=== PATIENT | female | born 1995 | race Caucasian/White ===

== ENCOUNTER 2022-06-27 23:46 | Emergency (ER) | payer SELFPAY ==
[~2022-06-27] VITALS: Ht 160 cm; Wt 57.2 kg
--- NOTE | 2022-06-28 00:40 | NUR ---
TO ER BED 11. BIBS FOR C/O LOWER ABD PAIN , N/V X 1 DAY. NO HEMATURIA OR DYSURIA. PT IS ALERT AND ORIENTED. RR EVEN AND NONLABOED. AMBULATORY WITH STEADY GAIT. CONNECTED TO MONITOR. AWAITING MD LEBLANC
[2022-06-28] MEDS ORDERED: ONDANSETRON HCL/PF 4 MG/2 ML VIAL ONE (01:12)
[2022-06-28] MEDS ORDERED: ACETAMINOPHEN ES 500 MG TABLET ONE (01:13)
--- NOTE | 2022-06-28 01:27 | NUR ---
BLOOD COLLECTED AND SENT TO LAB
--- NOTE | 2022-06-28 01:27 | NUR ---
IV LINE ESTABLISHED, [id number]
[2022-06-28] MEDS ORDERED: ACETAMINOPHEN ES 500 MG TABLET PO ONE (01:30)
[2022-06-28] MEDS ORDERED: IV NS 0.9% 1,000 ML BAG IV ONE (01:30)
[2022-06-28] MEDS ORDERED: ONDANSETRON HCL/PF 4 MG/2 ML VIAL IVP ONE (01:30)
--- NOTE | 2022-06-28 01:58 | NUR ---
URINE COLLECTED AND SENT TO LAB
[2022-06-28 02:00] LABS: BASOPHILS % (AUTO) 0.1 % (0.0-2.0); HEMATOCRIT 41 % (33-45); HEMOGLOBIN 13.8 g/dL (11.5-14.8); LYMPHOCYTES # (AUTO) 1.2 K/uL (0.8-4.8); LYMPHOCYTES % (AUTO) 7.7 % (20.0-44.0); MEAN CORPUSCULAR HGB CONC 34 g/dl (31.0-36.0); MEAN CORPUSCULAR VOLUME 90 fL (82-100); MONOCYTES # (AUTO) 0.4 K/uL (0.1-1.30); MONOCYTES % (AUTO) 2.5 % (2.0-12.0); NEUTROPHILS % (AUTO) 89.7 % (43.0-81.0); PLATELET COUNT (AUTO) 366 K/uL (150-450); RED BLOOD CELL COUNT(AUTO) 4.52 MIL/uL (4.0-5.2); WHITE BLOOD COUNT (AUTO) 15.6 K/uL (4.3-11.0)
[2022-06-28 02:13] LABS: ALBUMIN 4.7 g/dL (3.4-5.0); BILIRUBIN,DIRECT 0.4 mg/dL (0.0-0.2); BILIRUBIN,TOTAL 2.6 mg/dL (0.2-1.0); CALCIUM, SERUM 9.8 mg/dL (8.5-10.1); CREATININE 0.9 mg/dL (0.6-1.3); POTASSIUM 3.7 mmol/L (3.5-5.1); TOTAL PROTEIN, SERUM 8.4 g/dL (6.4-8.2)
[2022-06-28 02:55] LABS: BILIRUBIN,URINE NEGATIVE (NEGATIVE); COLOR,URINE DARK YELLOW (YELLOW); LEUKOCYTE ESTERASE ,URINE NEGATIVE (NEGATIVE); NITRITE, URINE NEGATIVE (NEGATIVE); PH,URINE 6.5 (5.0-8.0); PROTEIN,URINE 100 mg/dl (NEGATIVE); UGLUCOSE NEGATIVE (NEGATIVE); UROBILINOGEN,URINE 0.2 EU/dL (0.2)
[2022-06-28 02:58] LABS: BACTERIA,URINE Few /HPF (None Seen); SQUAMOUS EPITHELIAL CELL,UR Many /HPF (None Seen)
--- NOTE | 2022-06-28 03:43 | NUR ---
ULTRASOUND AT BEDSIDE
[2022-06-28] MEDS ORDERED: ONDA4TAB5 PO (04:50)
--- NOTE | 2022-06-28 05:01 | NUR ---
IV removed. Catheter intact and site benign. Pressure and 4x4 applied to site. No bleeding noted.
--- NOTE | 2022-06-28 05:01 | NUR ---
Patient discharged to home in stable condition. Written and verbal after care instructions given. Patient verbalizes understanding of instruction.
[2022-06-28 05:02] VITALS: BP 121/79
== END 2022-06-28 05:03 | disposition home or self-care (01) ==
LOC: ER 06-28 00:22
DX: R11.2 Nausea with vomiting, unspecified (principal); E80.7 Disorder of bilirubin metabolism, unspecified; F17.200 Nicotine dependence, unspecified, uncomplicated; Z79.899 Other long term (current) drug therapy
CPT/HCPCS: 99284; 96374; 76705; 96361; 85025; 80048; 87086; 83690; 80076; 84703; 81001; 36415; J2405; J7030